=== PATIENT | male | born 1965 | race Caucasian/White ===

== ENCOUNTER 2023-01-23 08:24 | Emergency (ER) | payer BC ==
[2023-01-23] MEDS ORDERED: Lidocaine 2% PF 100 mg/5 ml Syringe ONE (08:56)
[2023-01-23] MEDS ORDERED: Boostrix 0.5 ML (Tdap) VIAL (>/=7 yrs of age) ONE (09:06)
[2023-01-23] MEDS ORDERED: Bacitracin 1 PK ONE (09:07)
== END 2023-01-23 09:18 | disposition home or self-care (01) ==
LOC: NAV ERS 08:24
DX: S61.411A Laceration without foreign body of right hand, initial encounter (principal); W26.9XXA Contact with unspecified sharp object(s), initial encounter; Z23 Encounter for immunization
CPT/HCPCS: 12001; 90471; 90715; J2001